=== PATIENT | male | born 1970 | race Caucasian/White ===

== ENCOUNTER → 2017-09-09 | Outpatient (CLI) | payer BC ==
--- NOTE | 2017-09-09 09:49 | CT ---
EXAMINATION TYPE: CT sinus wo con DATE OF EXAM: 09/09/2017 COMPARISON: NONE HISTORY: Patient complains of chronic sinus congestion. CT DLP: 666 mGycm. Automated Exposure Control for Dose Reduction was Utilized. TECHNIQUE: CT scan of the sinuses is performed without contrast, axial images are obtained, coronal r eformatted images are also reviewed. FINDINGS: Dental amalgam present over portions of the exam. The paranasal sinuses including the fron jasbir and sphenoid sinuses bilaterally are well-aerated, and there is minimal mucoperiosteal thickening present within the maxillary sinuses, ethmoid air cells, some retained secretions suspected within t he right maxillary sinus. The ostiomeatal complex is patent bilaterally on the coronal images. Visualized portion of mastoid air cells show no abnormal opacification. The globes are intact bilate rally. IMPRESSION: The sinuses are showing inflammatory change in the axillary sinus, ethmoid air cells, and the ostiomeatal complex is patent bilaterally.
== END | disposition home or self-care (01) ==
LOC: RADCTMAIN 08:27
PROVIDERS: ATTEND Otolaryngology
DX: J32.9 Chronic sinusitis, unspecified (principal)
CPT/HCPCS: 70486

== ENCOUNTER 2019-03-08 12:56 | Emergency (ER) | payer BC ==
[2019-03-08] MEDS ORDERED: SODIUM CHLORIDE 0.9% 500 ML 500 ML IV STA (13:00)
[2019-03-08] MEDS ORDERED: SODIUM CHLORIDE 0.9% 1,000 ML IV STA (13:00)
[2019-03-08] MEDS ORDERED: DIPH,PERTUS(ACELL)TETVAC-LF 0.5 ML VIAL IM ONE (13:00)
[2019-03-08] MEDS ORDERED: TRANEXAMIC ACID 1,000 MG in SODIUM CHLORIDE 0.9% 250 ML IV ONE (13:00)
[2019-03-08] MEDS ORDERED: TRANEXAMIC ACID 1,000 MG in SODIUM CHLORIDE 0.9% 100 ML IV STA (13:00)
[2019-03-08] MEDS ORDERED: fentaNYL (PF) 50 MCG/ML 2 ML AMP IVP PRN (13:07)
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
[2019-03-08 13:27] LABS: Basophils # (A) 0.1 k/uL (0-0.2); Basophils % (A) 1 %; Eosinophils # (A) 0.2 k/uL (0-0.7); Eosinophils % (A) 1 %; HCT 41.3 % (39.0-53.0); HGB 13.9 gm/dL (13.0-17.5); Lymphocytes # (A) 2.8 k/uL (1.0-4.8); Lymphocytes % (A) 21 %; MCH 32.2 pg (25.0-35.0); MCHC 33.6 g/dL (31.0-37.0); Mean Platelet Volume 6.4; Monocytes # (A) 0.5 k/uL (0-1.0); Monocytes % (A) 3 %; Neutrophils # (A) 9.9 k/uL (1.3-7.7); Neutrophils % (A) 73 %; Platelet Count 282 k/uL (150-450); RBC 4.31 m/uL (4.30-5.90); WBC 13.6 k/uL (3.8-10.6)
[2019-03-08 13:29] VITALS: RESP 18; TEMP 97.8
--- NOTE | 2019-03-08 13:30 | XR ---
EXAMINATION TYPE: XR chest 1V portable DATE OF EXAM: 03/08/2019 COMPARISON: None INDICATION: Trauma, pain TECHNIQUE: Single frontal view of the chest is obtained. FINDINGS: The heart size is normal. The pulmonary vasculature is normal. The lungs are clear. IMPRESSION: 1. No acute pulmonary process.
[2019-03-08] MEDS ORDERED: HYDROmorphone 1 MG/ML 1 ML SYRINGE IVP STA (13:31)
--- NOTE | 2019-03-08 13:34 | XR ---
EXAMINATION TYPE: XR pelvis AP view DATE OF EXAM: 03/08/2019 COMPARISON: None HISTORY: Laceration across the abdomen TECHNIQUE: Single AP pelvis FINDINGS: Femoral heads articulate with the acetabulum. Cam deformities are present which are chronic . Femoral heads articulate with the acetabulum. No acute fractures are evident. Bowel gas appears nor mal. There is some soft tissue injury across the lower abdomen and hip regions. No radiopaque foreign bodi es are identified. Overlying bandage plane. Artifact is present. IMPRESSION: 1. Soft tissue injury. 2. No acute osseous abnormality radiopaque foreign bodies identified.
[2019-03-08 13:37] LABS: ALT 32 U/L (21-72); AST 25 U/L (17-59); African American GFR (CKD) >90 (>60 ml/min/1.73 sqM); Albumin 3.4 g/dL (3.5-5.0); Alcohol <10 mg/dL; Alkaline Phosphatase 47 U/L (38-126); Amylase 57 U/L (30-110); Anion Gap 7 mmol/L; Blood Urea Nitrogen 18 mg/dL (9-20); Calcium 8.2 mg/dL (8.4-10.2); Carbon Dioxide 26 mmol/L (22-30); Chloride 108 mmol/L (98-107); Glucose 141 mg/dL (74-99); Potassium 4.8 mmol/L (3.5-5.1); Sodium 141 mmol/L (137-145); Total Bilirubin 0.6 mg/dL (0.2-1.3); Total Protein 5.7 g/dL (6.3-8.2)
[2019-03-08 13:42] LABS: Prothrombin Time 10.9 sec (9.0-12.0)
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
[2019-03-08 13:44] LABS: Partial Thromboplastin Time 21.8 sec (22.0-30.0)
[2019-03-08 13:46] LABS: Creatine Kinase 78 U/L (55-170)
[2019-03-08 13:47] VITALS: BP 137/84; PULSE 77
[2019-03-08 13:51] LABS: Glucose,Whole Blood 126 mg/dL (75-99)
[2019-03-08 13:59] LABS: Creatine Kinase MB 0.6 ng/mL (0.0-2.4); Troponin I <0.012 ng/mL (0.000-0.034)
--- NOTE | 2019-03-08 14:27 | P.GSCN ---
History of Present Illness Consult date: 03/08/19 Reason for Consult: Priority 1 trauma History of present illness: Patient brought to the hospital after sustaining a injury to his groin. Patient was using a post hole bigger connected to the PTO on his tractor. He was pushing down on the implement and states either his shirt or short Justen caught into the shaft of the posterior pole bigger drawing him into the machinery. Pressure was held at the scene. At least 20-30 minutes occurred between sustaining the injury and arrival to the ER. Vital signs were stable. Upon my evaluation the blood transfusion protocol had begun. 2 units had been ordered. Patient's vital signs during his hospital stay have been stable. He is awake and talking throughout. Complaining of discomfort in that region. Complains of mild numbness and tingling sensation in the right leg. Able to move the extremities however. No loss of consciousness. No chest pain or shortness of breath. No neck discomfort. Review of Systems The patient denies any acute changes in vision or hearing, no dysphagia or odynophagia, no chest pain or shortness of breath, no dysuria or hematuria, no headache, no runny nose, no rectal bleeding or melena, no unexplained weight loss Medications and Allergies Home Medications Medication Instructions Recorded Confirmed Type Montelukast [Singulair] 10 mg PO DAILY 03/08/19 03/08/19 History Allergies Allergy/AdvReac Type Severity Reaction Status Date / Time No Known Allergies Allergy Verified 03/08/19 13:40 Surgical - Exam Vital Signs Temp Pulse Resp BP Pulse Ox 97.8 F 84 18 133/79 100 03/08/19 13:27 03/08/19 13:27 03/08/19 13:27 03/08/19 13:27 03/08/19 13:27 Physical exam: General: Well-developed, well-nourished HEENT: Normocephalic, sclerae nonicteric Chest: Clear to auscultation, equal breath sounds, no deformities or injury Abdomen/Pelvi: Open wound lower abdomen with horizontal laceration of the lower abdominal wall extending more to the right, no visualized intraperitoneal structures at the wound bed, small amount of oozing from the laceration but no significant bleeding identified, degloving injury extends into the mons and onto the genitalia anteriorly, right testicle laying on the mid aspect of the right thigh anteriorly, scrotum nonvisualized on the right-hand side, penis with degloving injury involving the shaft Extremities: Able to move all extremities, distal pulses intact Neuro: Alert and oriented Results - Labs 03/08/19 13:08 03/08/19 13:08 Abnormal Lab Results - Last 24 Hours (Table) 03/08/19 03/08/19 03/08/19 Range/Units 13:08 13:08 13:08 WBC 13.6 H (3.8-10.6) k/uL Neutrophils # 9.9 H (1.3-7.7) k/uL APTT (22.0-30.0) sec Chloride 108 H (98-107) mmol/L Glucose 141 H (74-99) mg/dL POC Glucose (mg/dL) (75-99) mg/dL Plasma Lactic Acid Robert (0.7-2.0) mmol/L Calcium 8.2 L (8.4-10.2) mg/dL Total Protein 5.7 L (6.3-8.2) g/dL Albumin 3.4 L (3.5-5.0) g/dL Crossmatch See Detail 03/08/19 03/08/19 03/08/19 Range/Units 13:08 13:08 13:31 WBC (3.8-10.6) k/uL Neutrophils # (1.3-7.7) k/uL APTT 21.8 L (22.0-30.0) sec Chloride (98-107) mmol/L Glucose (74-99) mg/dL POC Glucose (mg/dL) 126 H (75-99) mg/dL Plasma Lactic Acid Robert 3.4 H* (0.7-2.0) mmol/L Calcium (8.4-10.2) mg/dL Total Protein (6.3-8.2) g/dL Albumin (3.5-5.0) g/dL Crossmatch Diabetes panel 03/08/19 Range/Units 13:08 Sodium 141 (137-145) mmol/L Potassium 4.8 (3.5-5.1) mmol/L Chloride 108 H (98-107) mmol/L Carbon Dioxide 26 (22-30) mmol/L BUN 18 (9-20) mg/dL Creatinine 0.89 (0.66-1.25) mg/dL Glucose 141 H (74-99) mg/dL Calcium 8.2 L (8.4-10.2) mg/dL AST 25 (17-59) U/L ALT 32 (21-72) U/L Alkaline Phosphatase 47 (38-126) U/L Total Protein 5.7 L (6.3-8.2) g/dL Albumin 3.4 L (3.5-5.0) g/dL Calcium panel 03/08/19 Range/Units 13:08 Calcium 8.2 L (8.4-10.2) mg/dL Albumin 3.4 L (3.5-5.0) g/dL Pituitary panel 03/08/19 Range/Units 13:08 Sodium 141 (137-145) mmol/L Potassium 4.8 (3.5-5.1) mmol/L Chloride 108 H (98-107) mmol/L Carbon Dioxide 26 (22-30) mmol/L BUN 18 (9-20) mg/dL Creatinine 0.89 (0.66-1.25) mg/dL Glucose 141 H (74-99) mg/dL Calcium 8.2 L (8.4-10.2) mg/dL Adrenal panel 03/08/19 Range/Units 13:08 Sodium 141 (137-145) mmol/L Potassium 4.8 (3.5-5.1) mmol/L Chloride 108 H (98-107) mmol/L Carbon Dioxide 26 (22-30) mmol/L BUN 18 (9-20) mg/dL Creatinine 0.89 (0.66-1.25) mg/dL Glucose 141 H (74-99) mg/dL Calcium 8.2 L (8.4-10.2) mg/dL Total Bilirubin 0.6 (0.2-1.3) mg/dL AST 25 (17-59) U/L ALT 32 (21-72) U/L Alkaline Phosphatase 47 (38-126) U/L Total Protein 5.7 L (6.3-8.2) g/dL Albumin 3.4 L (3.5-5.0) g/dL Assessment and Plan (1) Pelvic injury Narrative/Plan: Patient with impressive degloving injury involving the lower abdominal wall, pelvis, and genitalia. CAT scan shows no evidence of intraperitoneal injury, bladder somewhat full, no bony injury or evidence of large vessel involvement. No enlarging hematoma seen. Urology was immediately contacted after the injury was examined my myself. Dr. Mahmood came down to the emergency room department to evaluate this patient with me. Dr. Mahmood made several phone calls to urologist in the [facility] area. Decision was made for the patient to be transferred to [facility] for definitive closure and care of this impressive injury. During his stay in the ER we decided to place a Tejeda catheter. This was placed by urology without incident. Clear urine was obtained. Patient will be transferred to [facility] at this time. 2 units of blood will be available during transfer. Discussion with [facility] took place between the ER physician and [facility] staff. Current Visit: Yes Status: Acute Code(s): S39.93XA - UNSPECIFIED INJURY OF PELVIS, INITIAL ENCOUNTER SNOMED Code(s): 871860167
--- NOTE | 2019-03-08 16:46 | P.GSCN ---
History of Present Illness Consult date: 03/08/19 Reason for Consult: Genitourinary avulsion injury Requesting physician: Jonatan Segura History of present illness: The patient is a 48-year-old male who was using a postal digger connected to his tractor PTO. He states that his clothing, likely his shirt or Tejeda, were caught in the shaft of the pull digger, drawing him into the machinery. He was brought to the emergency room for evaluation. He reports pain in the region of the external genitalia, as well as mild numbness and tingling of the right lower extremity. He denies any urge to void. Review of Systems - Constitutional Denies chills, Denies fever - Gastrointestinal Denies nausea, Denies vomiting Medications and Allergies Home Medications Medication Instructions Recorded Confirmed Type Montelukast [Singulair] 10 mg PO DAILY 03/08/19 03/08/19 History Allergies Allergy/AdvReac Type Severity Reaction Status Date / Time No Known Allergies Allergy Verified 03/08/19 13:40 Surgical - Exam Vital Signs Temp Pulse Resp BP Pulse Ox 97.8 F 84 18 133/79 100 03/08/19 13:27 03/08/19 13:27 03/08/19 13:27 03/08/19 13:27 03/08/19 13:27 - General well developed, well nourished, moderate distress - Respiratory normal respiratory effort - Abdomen A horizontal laceration of the lower abdominal wall is noted, extending more on the right side than the left. No intraperitoneal structures are seen within the wound. A small amount of oozing from the right lateral aspect of the laceration is noted, but this resolves with packing. An avulsion injury of the left medial thigh skin is noted, exposing the underlying musculature. - Genitourinary The phallus is degloved but intact. The glans penis is somewhat ecchymotic but intact. There is no blood at the urethral meatus. The patient is awake, and the scrotum is not readily visualized for evaluation. The right testicle lies on the medial aspect of the right thigh and appears viable. The left testicle was not visualized. - Psychiatric oriented to time, oriented to person, oriented to place, speech is normal, memory intact Results - Labs 03/08/19 13:08 03/08/19 13:08 Abnormal Lab Results - Last 24 Hours (Table) 03/08/19 03/08/19 03/08/19 Range/Units 13:08 13:08 13:08 WBC 13.6 H (3.8-10.6) k/uL Neutrophils # 9.9 H (1.3-7.7) k/uL APTT (22.0-30.0) sec Chloride 108 H (98-107) mmol/L Glucose 141 H (74-99) mg/dL POC Glucose (mg/dL) (75-99) mg/dL Plasma Lactic Acid Robert (0.7-2.0) mmol/L Calcium 8.2 L (8.4-10.2) mg/dL Total Protein 5.7 L (6.3-8.2) g/dL Albumin 3.4 L (3.5-5.0) g/dL Crossmatch See Detail 03/08/19 03/08/19 03/08/19 Range/Units 13:08 13:08 13:31 WBC (3.8-10.6) k/uL Neutrophils # (1.3-7.7) k/uL APTT 21.8 L (22.0-30.0) sec Chloride (98-107) mmol/L Glucose (74-99) mg/dL POC Glucose (mg/dL) 126 H (75-99) mg/dL Plasma Lactic Acid Robert 3.4 H* (0.7-2.0) mmol/L Calcium (8.4-10.2) mg/dL Total Protein (6.3-8.2) g/dL Albumin (3.5-5.0) g/dL Crossmatch Diabetes panel 03/08/19 Range/Units 13:08 Sodium 141 (137-145) mmol/L Potassium 4.8 (3.5-5.1) mmol/L Chloride 108 H (98-107) mmol/L Carbon Dioxide 26 (22-30) mmol/L BUN 18 (9-20) mg/dL Creatinine 0.89 (0.66-1.25) mg/dL Glucose 141 H (74-99) mg/dL Calcium 8.2 L (8.4-10.2) mg/dL AST 25 (17-59) U/L ALT 32 (21-72) U/L Alkaline Phosphatase 47 (38-126) U/L Total Protein 5.7 L (6.3-8.2) g/dL Albumin 3.4 L (3.5-5.0) g/dL Calcium panel 03/08/19 Range/Units 13:08 Calcium 8.2 L (8.4-10.2) mg/dL Albumin 3.4 L (3.5-5.0) g/dL Pituitary panel 03/08/19 Range/Units 13:08 Sodium 141 (137-145) mmol/L Potassium 4.8 (3.5-5.1) mmol/L Chloride 108 H (98-107) mmol/L Carbon Dioxide 26 (22-30) mmol/L BUN 18 (9-20) mg/dL Creatinine 0.89 (0.66-1.25) mg/dL Glucose 141 H (74-99) mg/dL Calcium 8.2 L (8.4-10.2) mg/dL Adrenal panel 03/08/19 Range/Units 13:08 Sodium 141 (137-145) mmol/L Potassium 4.8 (3.5-5.1) mmol/L Chloride 108 H (98-107) mmol/L Carbon Dioxide 26 (22-30) mmol/L BUN 18 (9-20) mg/dL Creatinine 0.89 (0.66-1.25) mg/dL Glucose 141 H (74-99) mg/dL Calcium 8.2 L (8.4-10.2) mg/dL Total Bilirubin 0.6 (0.2-1.3) mg/dL AST 25 (17-59) U/L ALT 32 (21-72) U/L Alkaline Phosphatase 47 (38-126) U/L Total Protein 5.7 L (6.3-8.2) g/dL Albumin 3.4 L (3.5-5.0) g/dL - Imaging CT scan - abdomen: report reviewed, image reviewed Assessment and Plan (1) Scrotal injury Status: Acute Code(s): S39.94XA - UNSPECIFIED INJURY OF EXTERNAL GENITALS, INITIAL ENCOUNTER SNOMED Code(s): 913884144 Plan: I reviewed the computed tomography scan with Dr. Segura. The bladder was noted to be mildly distended but intact. The penile skin has been degloved but the penis itself appears intact. The right testicle appears viable. The status of the left testicle and scrotal skin is unclear at the time of initial evaluation. After much consideration, the decision was made that the patient would be best served undergoing surgical wound closure at a tertiary care center, and arrangements were thus made for him to be transferred to [facility]. Prior to transfer, I placed a 16-Khmer Tejeda catheter under sterile conditions, yielding return of clear yellow urine. Time with Patient: Greater than 30
--- NOTE | 2019-03-12 01:07 | CDI ---
Documentation Clarification OP Dear Ignacio URIBE, DO Please provide clinical impression. Thank you, Fredis Arcos [employer] If you have any questions, please contact [employer] Build Engineer at [phone] [facility]
== END 2019-03-08 14:35 | disposition short-term general hospital (02) ==
LOC: EC 12:56
DX: S31.119A Laceration without foreign body of abdominal wall, unspecified quadrant without penetration into peritoneal cavity, initial encounter (principal); S39.93XA Unspecified injury of pelvis, initial encounter; S39.94XA Unspecified injury of external genitals, initial encounter; S79.912A Unspecified injury of left hip, initial encounter; S79.911A Unspecified injury of right hip, initial encounter; S79.922A Unspecified injury of left thigh, initial encounter; S79.921A Unspecified injury of right thigh, initial encounter; Z79.899 Other long term (current) drug therapy; Z23 Encounter for immunization; X99.8XXA Assault by other sharp object, initial encounter; Y92.69 Other specified industrial and construction area as the place of occurrence of the external cause; Y99.0 Civilian activity done for income or pay
CPT/HCPCS: 99291 ×2; 51702 ×2; 96365 ×4; 96367 ×2; 96375 ×3; 96361 ×2; 90471 ×2; 36430; 36415; 86900; 86901; 80053; 82150; 82550; 82553; 83605; 83690; 84484; 85025; 85610; 85730; 86850; 86920; 80320; 72170; 71045; 71260; 74177; 90715; P9016; J0690; J3010; J1170; Q9967

== ENCOUNTER 2019-04-15 00:46 | Emergency (ER) | payer BC ==
[2019-04-15] MEDS ORDERED: ACETAMINOPHEN TAB 325 MG TAB PO STA (01:41)
--- NOTE | 2019-04-15 01:47 | ED ---
Fever HPI - General Chief Complaint: Fever Stated Complaint: fever Time Seen by Provider: 04/15/19 01:12 Source: patient, family Mode of arrival: wheelchair Limitations: no limitations - History of Present Illness Initial Comments: This patient is a 48-year-old man presenting to be evaluated for fever which is been going on since the evening. The patient did have a recent traumatic injury requiring reconstructive surgery which occurred at [facility]. He had been at a rehab facility until being discharged yesterday and then noted the fever developing at night. The patient did initially take ibuprofen then took Tylenol 2 hours ago now. Patient's noted that his urine, which is through an indwelling Tejeda catheter due to penile injury Patient denies other symptoms of infection. MD Complaint: fever -: hour(s) Temperature Source: oral Associated Symptoms: chills Treatments Prior to Arrival: Acetaminophen, Ibuprofen - Related Data Home Medications Medication Instructions Recorded Confirmed Montelukast [Singulair] 10 mg PO DAILY 03/08/19 03/08/19 Allergies Allergy/AdvReac Type Severity Reaction Status Date / Time No Known Allergies Allergy Verified 04/15/19 00:59 Review of Systems ROS Statement: Those systems with pertinent positive or pertinent negative responses have been documented in the HPI. ROS Other: All systems not noted in ROS Statement are negative. Past Medical History Additional Past Medical History / Comment(s): pt was in a posthole digger and was in an accident Mar 08 and shipped to [facility] History of Any Multi-Drug Resistant Organisms: None Reported Additional Past Surgical History / Comment(s): skin debridments. wound closure. skin graft-abdomen torso Past Psychological History: No Psychological Hx Reported Smoking Status: Never smoker Past Alcohol Use History: None Reported Past Drug Use History: None Reported General Exam Limitations: no limitations General appearance: alert, in no apparent distress Head exam: Present: atraumatic, normocephalic ENT exam: Present: normal oropharynx, mucous membranes moist Neck exam: Present: normal inspection, full ROM. Absent: meningismus Respiratory exam: Present: normal lung sounds bilaterally. Absent: respiratory distress, wheezes, rales, rhonchi, stridor Cardiovascular Exam: Present: normal rhythm, tachycardia, normal heart sounds. Absent: systolic murmur, diastolic murmur, rubs, gallop GI/Abdominal exam: Present: soft. Absent: distended, tenderness, guarding, rebound, rigid, mass Extremities exam: Present: normal inspection, normal capillary refill. Absent: pedal edema, calf tenderness Back exam: Present: normal inspection. Absent: CVA tenderness (R), CVA tenderness (L) Neurological exam: Present: alert Skin exam: Present: warm, dry, intact, normal color. Absent: rash Course Vital Signs 04/15/19 04/15/19 04/15/19 00:53 01:10 02:13 Temperature 102.9 F H Pulse Rate 142 H 112 H Respiratory 20 18 Rate Blood Pressure 119/61 O2 Sat by Pulse 97 Oximetry 04/15/19 04/15/19 03:13 05:04 Temperature 100.1 F H 98.2 F Pulse Rate 112 H 103 H Respiratory 20 20 Rate Blood Pressure 100/55 108/64 O2 Sat by Pulse 98 98 Oximetry Medical Decision Making - Medical Decision Making This patient is a 48-year-old man who did have abdominal wall and general injury on March 08, requiring surgical repair, presenting tonight with fever, appearing to have urinary tract infection and sepsis related to this. Patient is given sepsis bolus and started on antibiotic for urinary tract infection. Discussed further treatment with the patient and he requests to be transferred back to [facility] should he require any surgical debridement, as she is known to the surgical services there. This does seem the most rational choice I did discuss with transfer team and also with Dr. Mortensen who accepts transfer there. The patient is requesting to go by private auto and discussed risks and benefits and will accede to patient's desires. - Lab Data Result diagrams: 04/15/19 01:12 04/15/19 01:12 Lab Results 04/15/19 04/15/19 04/15/19 Range/Units 01:12 01:12 01:12 WBC 12.4 H (3.8-10.6) k/uL RBC 3.67 L (4.30-5.90) m/uL Hgb 11.2 L (13.0-17.5) gm/dL Hct 33.8 L (39.0-53.0) % MCV 92.3 (80.0-100.0) fL MCH 30.6 (25.0-35.0) pg MCHC 33.2 (31.0-37.0) g/dL RDW 14.8 (11.5-15.5) % Plt Count 400 (150-450) k/uL Neutrophils % 89 % Lymphocytes % 6 % Monocytes % 4 % Eosinophils % 1 % Basophils % 0 % Neutrophils # 11.0 H (1.3-7.7) k/uL Lymphocytes # 0.8 L (1.0-4.8) k/uL Monocytes # 0.4 (0-1.0) k/uL Eosinophils # 0.1 (0-0.7) k/uL Basophils # 0.0 (0-0.2) k/uL PT (9.0-12.0) sec INR (<1.2) APTT (22.0-30.0) sec Sodium 138 (137-145) mmol/L Potassium 4.3 (3.5-5.1) mmol/L Chloride 102 (98-107) mmol/L Carbon Dioxide 23 (22-30) mmol/L Anion Gap 13 mmol/L BUN 26 H (9-20) mg/dL Creatinine 0.86 (0.66-1.25) mg/dL Est GFR (CKD-EPI)AfAm >90 (>60 ml/min/1.73 sqM) Est GFR (CKD-EPI)NonAf >90 (>60 ml/min/1.73 sqM) Glucose 115 H (74-99) mg/dL Lactic Ac Sepsis Rflx Plasma Lactic Acid Robert 3.1 H* (0.7-2.0) mmol/L Calcium 9.5 (8.4-10.2) mg/dL Total Bilirubin 0.4 (0.2-1.3) mg/dL AST 27 (17-59) U/L ALT 21 (21-72) U/L Alkaline Phosphatase 95 (38-126) U/L Total Protein 6.8 (6.3-8.2) g/dL Albumin 3.9 (3.5-5.0) g/dL Urine Color Urine Appearance (Clear) Urine pH (5.0-8.0) Ur Specific Gallina (1.001-1.035) Urine Protein (Negative) Urine Glucose (UA) (Negative) Urine Ketones (Negative) Urine Blood (Negative) Urine Nitrite (Negative) Urine Bilirubin (Negative) Urine Urobilinogen (<2.0) mg/dL Ur Leukocyte Esterase (Negative) Urine RBC (0-5) /hpf Urine WBC (0-5) /hpf Ur Squamous Epith Cells (0-4) /hpf Urine Bacteria (None) /hpf Urine Mucus (None) /hpf 04/15/19 04/15/19 04/15/19 Range/Units 01:12 01:58 02:04 WBC (3.8-10.6) k/uL RBC (4.30-5.90) m/uL Hgb (13.0-17.5) gm/dL Hct (39.0-53.0) % MCV (80.0-100.0) fL MCH (25.0-35.0) pg MCHC (31.0-37.0) g/dL RDW (11.5-15.5) % Plt Count (150-450) k/uL Neutrophils % % Lymphocytes % % Monocytes % % Eosinophils % % Basophils % % Neutrophils # (1.3-7.7) k/uL Lymphocytes # (1.0-4.8) k/uL Monocytes # (0-1.0) k/uL Eosinophils # (0-0.7) k/uL Basophils # (0-0.2) k/uL PT 10.3 (9.0-12.0) sec INR 1.0 (<1.2) APTT 22.7 (22.0-30.0) sec Sodium (137-145) mmol/L Potassium (3.5-5.1) mmol/L Chloride (98-107) mmol/L Carbon Dioxide (22-30) mmol/L Anion Gap mmol/L BUN (9-20) mg/dL Creatinine (0.66-1.25) mg/dL Est GFR (CKD-EPI)AfAm (>60 ml/min/1.73 sqM) Est GFR (CKD-EPI)NonAf (>60 ml/min/1.73 sqM) Glucose (74-99) mg/dL Lactic Ac Sepsis Rflx Y Plasma Lactic Acid Robert (0.7-2.0) mmol/L Calcium (8.4-10.2) mg/dL Total Bilirubin (0.2-1.3) mg/dL AST (17-59) U/L ALT (21-72) U/L Alkaline Phosphatase (38-126) U/L Total Protein (6.3-8.2) g/dL Albumin (3.5-5.0) g/dL Urine Color Yellow Urine Appearance Cloudy (Clear) Urine pH 6.5 (5.0-8.0) Ur Specific Gallina 1.027 (1.001-1.035) Urine Protein 1+ H (Negative) Urine Glucose (UA) Negative (Negative) Urine Ketones Negative (Negative) Urine Blood Small H (Negative) Urine Nitrite Positive (Negative) Urine Bilirubin Negative (Negative) Urine Urobilinogen <2.0 (<2.0) mg/dL Ur Leukocyte Esterase Large H (Negative) Urine RBC 50 H (0-5) /hpf Urine WBC 167 H (0-5) /hpf Ur Squamous Epith Cells <1 (0-4) /hpf Urine Bacteria Rare H (None) /hpf Urine Mucus Rare H (None) /hpf - EKG Data -: EKG Interpreted by Nc EKG shows normal: sinus rhythm, axis (Normal), intervals (Normal), QRS complexes (Normal), ST-T waves (Normal) Rate: tachycardia (Rate 1:30 bpm) Critical Care Time Critical Care Time: Yes (35 minutes) Disposition Clinical Impression: Fever, Sepsis, Urinary tract infection Disposition: TRANSFER TO SHORT TERM HOSP Condition: Serious Referrals: Cory Samuels DO [Primary Care Provider] - 1-2 days - Out of Hospital Transfer - Req. Specs Out of Hospital Transfer - Requested Specifics: Other Emergency Center
[2019-04-15 01:53] LABS: Basophils % (A) 0 %; Eosinophils # (A) 0.1 k/uL (0-0.7); Eosinophils % (A) 1 %; HCT 33.8 % (39.0-53.0); HGB 11.2 gm/dL (13.0-17.5); Lymphocytes # (A) 0.8 k/uL (1.0-4.8); Lymphocytes % (A) 6 %; MCH 30.6 pg (25.0-35.0); MCHC 33.2 g/dL (31.0-37.0); MCV 92.3 fL (80.0-100.0); Mean Platelet Volume 5.6; Monocytes # (A) 0.4 k/uL (0-1.0); Monocytes % (A) 4 %; Neutrophils % (A) 89 %; Platelet Count 400 k/uL (150-450); RBC 3.67 m/uL (4.30-5.90); RDW 14.8 % (11.5-15.5); WBC 12.4 k/uL (3.8-10.6)
[2019-04-15] MEDS: SODIUM CHLORIDE 0.9% 500 ML 500 ML IV SCH ×4 (01:54→04:31)
[2019-04-15 01:59] LABS: Partial Thromboplastin Time 22.7 sec (22.0-30.0); Prothrombin Time 10.3 sec (9.0-12.0)
[2019-04-15 02:01] LABS: ALT 21 U/L (21-72); AST 27 U/L (17-59); African American GFR (CKD) >90 (>60 ml/min/1.73 sqM); Albumin 3.9 g/dL (3.5-5.0); Alkaline Phosphatase 95 U/L (38-126); Anion Gap 13 mmol/L; Blood Urea Nitrogen 26 mg/dL (9-20); Calcium 9.5 mg/dL (8.4-10.2); Carbon Dioxide 23 mmol/L (22-30); Chloride 102 mmol/L (98-107); Glucose 115 mg/dL (74-99); Potassium 4.3 mmol/L (3.5-5.1); Sodium 138 mmol/L (137-145); Total Bilirubin 0.4 mg/dL (0.2-1.3); Total Protein 6.8 g/dL (6.3-8.2)
[2019-04-15 02:08] LABS: Appearance,Urine Cloudy (Clear); Bacteria,Urine Rare /hpf; Bilirubin,Urine Negative (Negative); Blood,Urine Small (Negative); Color,Urine Yellow; Glucose,Urine (UA) Negative (Negative); Ketones,Urine Negative (Negative); Leukocyte Esterase,Urine Large (Negative); Mucus,Urine Rare /hpf; Nitrite,Urine Positive (Negative); PH, Urine 6.5 (5.0-8.0); Protein,Urine 1+ (Negative); RBC,Urine 50 /hpf (0-5); Specific Gravity,Urine 1.027 (1.001-1.035); Squamous Epithelial Cell,Urine <1 /hpf (0-4); Urobilinogen,Urine <2.0 mg/dL (<2.0); WBC,Urine 167 /hpf (0-5)
[2019-04-15] MEDS ORDERED: IBUPROFEN 600 MG TAB PO STA (02:09)
[2019-04-15 03:14] VITALS: RESP 20
--- NOTE | 2019-04-15 04:13 | XR ---
EXAMINATION TYPE: XR chest 1V DATE OF EXAM: 04/15/2019 COMPARISON: 03/08/2019 HISTORY: Fever TECHNIQUE: Single frontal view of the chest is obtained. FINDINGS: Heart and mediastinum are normal. Lungs are clear. Diaphragm is normal. Bony thorax appear s normal. There are chest leads. IMPRESSION: Normal chest. No change.
[2019-04-15] MEDS ORDERED: oxyCODONE-APAP 7.5-325MG 1 EACH TAB PO STA (04:28)
[2019-04-15 05:05] VITALS: BP 108/64; PULSE 103; TEMP 98.2
== END 2019-04-15 05:08 | disposition short-term general hospital (02) ==
LOC: EC 00:46
DX: A41.9 Sepsis, unspecified organism (principal); N39.0 Urinary tract infection, site not specified; R00.0 Tachycardia, unspecified; Z96.0 Presence of urogenital implants
CPT/HCPCS: 36415; 93005; 80053; 83605; 85025; 85610; 85730; 81001; 87040; 87086; 71045; 99285; 96365; J0696

== ENCOUNTER → 2019-06-08 | Outpatient (CLI) | payer BC ==
--- NOTE | 2019-06-08 12:44 | MR ---
EXAMINATION TYPE: MR knee RT wo con DATE OF EXAM: 06/08/2019 COMPARISON: None HISTORY: R knee pain TECHNIQUE: Multiplanar, multisequence imaging of the right knee is performed without IV contrast. FINDINGS: MEDIAL MENISCUS: Posterior horn of the medial meniscus shows linear and stellate abnormal increased s ignal which extends to the articular surface at the undersurface on sagittal image #7, coronal image 25 LATERAL MENISCUS: Anterior and posterior horns are intact without tear. CRUCIATE LIGAMENTS: The anterior and posterior cruciate ligaments are intact though there is some inc reased signal at the insertion of the anterior cruciate ligament fibers distally.. COLLATERAL LIGAMENTS: The medial collateral ligament and lateral collateral ligament complex are inta ct and unremarkable. EXTENSOR MECHANISM: Visualized quadriceps and patellar tendons are intact. EFFUSION: Minimal joint effusion POPLITEAL CYST: No popliteal/mai cyst. TRICOMPARTMENT SPACES: Maintained CARTILAGE: Subchondral linear low signal with associated fat signal may represent focal area of osteo necrosis at the posterior patella, patellar signal shows a somewhat stippled appearance on T2 images. BONE MARROW SIGNAL: Intermediate signal on T1, increased signal on T2, proton density within the prox imal tibia anteriorly may be due to some reactive marrow signal changes are both contusion, microtrab ecular fracture on this coronal image 17. OTHER: There is abnormal increased signal involving the quadriceps musculature, correlate for possib le degeneration injury. There is subcutaneous edema change present. IMPRESSION: Posttraumatic changes involving the posterior patella may represent some focal osteonecrosis, sagitta l image #17. Tear of the posterior horn medial meniscus. Possible bone contusion, microtrabecular fra cture involving the proximal tibia anteriorly at its medial aspect. Possible partial tear anterior cr uciate ligament versus sprain.
== END | disposition home or self-care (01) ==
LOC: RADMRIMAIN 09:16
PROVIDERS: ATTEND Physical Medicine & Rehabilitation
DX: S83.241A Other tear of medial meniscus, current injury, right knee, initial encounter (principal)

== ENCOUNTER → 2023-02-21 | Outpatient (CLI) | payer BC ==
--- NOTE | 2023-02-21 17:02 | US ---
EXAMINATION TYPE: US venous doppler duplex LE BI DATE OF EXAM: 02/21/2023 4:48 PM COMPARISON: NONE CLINICAL INDICATION: Male, 52 years old with history of R22.41; edema SIDE PERFORMED: Bilateral TECHNIQUE: The lower extremity deep venous system is examined utilizing real time linear array sonog kaitlynn with graded compression, doppler sonography and color-flow sonography. VESSELS IMAGED: Common Femoral Vein Deep Femoral Vein Greater Saphenous Vein * Femoral Vein Popliteal Vein Small Saphenous Vein * Proximal Calf Veins (* superficial vessels) Right Leg: Negative for DVT Left Leg: Negative for DVT IMPRESSION: Grayscale, color doppler, spectral doppler imaging performed of the deep veins of the lo wer extremities. There is normal flow, compressibility, vascular waveforms.
== END | disposition home or self-care (01) ==
LOC: RADUSWWP 16:23
PROVIDERS: ATTEND Family Medicine
DX: R22.43 Localized swelling, mass and lump, lower limb, bilateral (principal)
CPT/HCPCS: 93970